=== PATIENT | male | born 1955 | race Caucasian/White ===

== ENCOUNTER 2016-11-15 18:00 | Emergency (ER) | payer OTHER ==
[2016-11-15 18:04] VITALS: BP 122/77; PULSE 69; RESP 23; O2SAT 100
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
[2016-11-15 18:15] LABS: BASOPHILS % (AUTO) 0.8 % (0-3); EOSINOPHILS % (AUTO) 3.1 % (0-5); MONOCYTES % (AUTO) 6.5 % (4-12); Mean Corpuscular Hemoglobin 27.3 pg (27.0-35.0); Mean Corpuscular Volume 85.8 fL (81-100); NEUTROPHILS % (AUTO) 63.7 % (40-74); Platelet Count 317 bil/L (150-400)
[2016-11-15] MEDS ORDERED: SENN17.27 PO (18:15)
[2016-11-15] MEDS ORDERED: ASPI-973 PO (18:15)
[2016-11-15] MEDS ORDERED: WARF10TA4 PO (18:15)
[2016-11-15] MEDS ORDERED: MELA3TAB35 PO (18:15)
[2016-11-15] MEDS ORDERED: LANS30CA PO (18:15)
[2016-11-15] MEDS ORDERED: AMN100C PO (18:15)
[2016-11-15] MEDS ORDERED: [UNRECOGNIZED DRUG - OTHER] OCULAR (18:15)
[2016-11-15] MEDS ORDERED: LISI-571 PO (18:15)
[2016-11-15] MEDS ORDERED: DOXA1TAB PO (18:15)
[2016-11-15 18:37] LABS: INR 2.85 ratio
[2016-11-15 18:49] LABS: Magnesium 1.8 mg/dL (1.6-2.6)
[2016-11-15] MEDS: fentaNYL-PF 50 mCg/mL 2 mL Inj IVPUSH PRN ×4 (18:57→20:15)
[2016-11-15 19:01] LABS: TROPONIN T < 0.010 ug/L (0.0-0.011)
--- NOTE | 2016-11-15 19:23 | DRSVH ---
PROCEDURE: X-RAY CHEST ONE VIEW, PORTABLE ([id number]) INDICATIONS: syncopal TECHNIQUE: One view of the chest was acquired. COMPARISON: None. FINDINGS: Surgical changes and devices: patient representative leads are seen over the chest. Lungs and pleura: No pleural effusions or pneumothorax. Lungs are clear. The pulmonary vasculature is normal. Mediastinum: Mediastinal contours appear normal. Heart size is normal. Bones and chest wall: No suspicious bony lesions. Overlying soft tissues appear unremarkable. IMPRESSION: No abnormality seen AP portable chest. Dictated by: Shaq Augustin M.D. on 11/15/2016 at 19:12 Approved by: Shaq Augustin M.D. on 11/15/2016 at 19:23
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
[2016-11-15] MEDS ORDERED: HYDROmorphone 0.5 mg/0.5 mL iSecure Syringe IVPUSH PRN (20:30)
[2016-11-15 21:40] VITALS: BP 154/88; PULSE 89; RESP 23; O2SAT 95
== END 2016-11-15 21:42 | disposition short-term general hospital (02) ==
LOC: SED 18:00
DX: R51 Headache (principal); R55 Syncope and collapse; R42 Dizziness and giddiness; R11.10 Vomiting, unspecified; I10 Essential (primary) hypertension; Z87.820 Personal history of traumatic brain injury; Z86.718 Personal history of other venous thrombosis and embolism; Z79.01 Long term (current) use of anticoagulants; Z79.82 Long term (current) use of aspirin
CPT/HCPCS: 36415; 70450; 71010; 80053; 83735; 84484; 85025; 85610; 93005; 96361; 96374; 96375; 96376; 99285; J1170; J2060; J3010

== ENCOUNTER 2016-11-26 12:38 | Emergency (ER) | payer OTHER ==
[~2016-11-26] VITALS: Ht 182.9 cm; Wt 77.0 kg
[~2016-11-26 12:38] MED LIST: AMN100C PO; ASPI-973 PO; DOXA1TAB PO; LANS30CA PO; LISI-571 PO; MELA3TAB35 PO; SENN17.27 PO; WARF10TA4 PO; [UNRECOGNIZED DRUG - OTHER] OCULAR
[2016-11-26 12:40] VITALS: BP 142/101; PULSE 97; RESP 15; O2SAT 98
[2016-11-26] MEDS ORDERED: Ketorolac 30 mg/mL 2 mL Inj IM ONE (13:05)
[2016-11-26 13:44] LABS: BASOPHILS % (AUTO) 0.5 % (0-3); EOSINOPHILS % (AUTO) 0.7 % (0-5); MONOCYTES % (AUTO) 4.4 % (4-12); Mean Corpuscular Hemoglobin 26.8 pg (27.0-35.0); Mean Corpuscular Volume 80.6 fL (81-100); NEUTROPHILS % (AUTO) 75.7 % (40-74); Platelet Count 357 bil/L (150-400)
[2016-11-26] MEDS ORDERED: 0.9% Sodium Chloride 1,000 ML IV ONE (13:45)
[2016-11-26] MEDS ORDERED: LORazepam 1 mg Tablet PO ONE (13:45)
[2016-11-26 13:59] LABS: INR 0.92 ratio
[2016-11-26 14:35] VITALS: BP 147/91; PULSE 82; RESP 15; O2SAT 100
[2016-11-26 14:36] LABS: APPEARANCE,URINE HAZY (CLEAR,HAZY); COLOR,URINE STRAW (YELLOW); OCCULT BLOOD,URINE NEGATIVE (NEGATIVE); PH,URINE 8.5 (5.0-8.0); UROBILINOGEN,URINE NORMAL (NORMAL)
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
[2016-11-26 17:38] VITALS: BP 135/83; PULSE 68; RESP 12; O2SAT 97
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
== END 2016-11-26 18:57 | disposition home or self-care (01) ==
LOC: SED 12:38
DX: S01.90XD Unspecified open wound of unspecified part of head, subsequent encounter (principal); G43.809 Other migraine, not intractable, without status migrainosus; H54.0 Blindness, both eyes; R11.0 Nausea; E86.0 Dehydration; R26.89 Other abnormalities of gait and mobility; G08 Intracranial and intraspinal phlebitis and thrombophlebitis; X95.9XXD Assault by unspecified firearm discharge, subsequent encounter; Y93.89 Activity, other specified; Y99.0 Civilian activity done for income or pay; Y92.69 Other specified industrial and construction area as the place of occurrence of the external cause; R47.1 Dysarthria and anarthria; I10 Essential (primary) hypertension; D64.9 Anemia, unspecified; Z87.820 Personal history of traumatic brain injury; Z87.81 Personal history of (healed) traumatic fracture; Z79.82 Long term (current) use of aspirin
CPT/HCPCS: 36415; 70450; 80053; 81000; 85025; 85610; 96360; 96372; 99285; J1885; J7030

== ENCOUNTER 2017-01-03 10:46 | Emergency (ER) | payer OTHER ==
[~2017-01-03] VITALS: Ht 182.9 cm; Wt 81.8 kg
[2017-01-03 10:55] VITALS: BP 101/60; PULSE 78; RESP 20; O2SAT 100
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
[2017-01-03] MEDS ORDERED: 0.9% Sodium Chloride 1,000 ML IV ONE (10:57)
--- NOTE | 2017-01-03 11:34 | DRSVH ---
PROCEDURE: X-RAY CHEST ONE VIEW, PORTABLE ([id number]) INDICATIONS: syncope TECHNIQUE: One view of the chest was acquired. COMPARISON: [facility], CR, XR CHEST 1VW (PORTABLE), 11/15/2016, 18:27. FINDINGS: Surgical changes and devices: None. Lungs and pleura: No pleural effusions or pneumothorax. Lungs are clear. Mediastinum: Mediastinal contours appear normal. Heart size is normal. Bones and chest wall: No suspicious bony lesions. Overlying soft tissues appear unremarkable. IMPRESSION: No acute disease Dictated by: Kirit Bro M.D. on 01/03/2017 at 11:32 Approved by: Kirit Bro M.D. on 01/03/2017 at 11:32
[2017-01-03 11:50] LABS: BASOPHILS % (AUTO) 0.6 % (0-3); EOSINOPHILS % (AUTO) 1.6 % (0-5); MONOCYTES % (AUTO) 7.3 % (4-12); Mean Corpuscular Hemoglobin 24.9 pg (27.0-35.0); Mean Corpuscular Volume 78.4 fL (81-100); NEUTROPHILS % (AUTO) 70.7 % (40-74); Platelet Count 227 bil/L (150-400)
[2017-01-03 13:01] LABS: Magnesium 1.6 mg/dL (1.6-2.6)
[2017-01-03 13:09] VITALS: BP 106/60; PULSE 67; RESP 20; O2SAT 95
== END 2017-01-03 13:57 | disposition home or self-care (01) ==
LOC: SED 11:09
DX: R55 Syncope and collapse (principal); I10 Essential (primary) hypertension; Z79.82 Long term (current) use of aspirin; Z79.01 Long term (current) use of anticoagulants
CPT/HCPCS: 36415; 71010; 80053; 82948; 83735; 85025; 93005; 96360; 99285; J7030

== ENCOUNTER 2017-01-17 11:34 | Emergency (ER) | payer OTHER ==
[~2017-01-17] VITALS: Ht 177.8 cm; Wt 90.9 kg
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
[2017-01-17 11:37] VITALS: BP 95/64; PULSE 68; RESP 28; O2SAT 98
[2017-01-17] MEDS ORDERED: 0.9% Sodium Chloride 1,000 ML IV ONE (11:50)
[2017-01-17 11:53] LABS: BASOPHILS % (AUTO) 0.5 % (0-3); EOSINOPHILS % (AUTO) 1.8 % (0-5); Mean Corpuscular Hemoglobin 25.3 pg (27.0-35.0); Mean Corpuscular Volume 77.7 fL (81-100); NEUTROPHILS % (AUTO) 64.5 % (40-74); Platelet Count 290 bil/L (150-400)
[2017-01-17 12:06] VITALS: BP 95/71; PULSE 70; RESP 13; O2SAT 100
[2017-01-17 12:13] LABS: INR 0.9 ratio
[2017-01-17 12:39] LABS: TROPONIN T 0.01 ug/L (0.0-0.011)
[2017-01-17 12:50] LABS: Magnesium 1.7 mg/dL (1.6-2.6)
[2017-01-17 13:17] VITALS: BP 112/78; PULSE 73
[2017-01-17 13:53] LABS: APPEARANCE,URINE HAZY (CLEAR,HAZY); COLOR,URINE STRAW (YELLOW); OCCULT BLOOD,URINE NEGATIVE (NEGATIVE); UROBILINOGEN,URINE NORMAL (NORMAL)
[2017-01-17 14:04] VITALS: BP 115/82; PULSE 71; O2SAT 98
== END 2017-01-17 14:05 | disposition home or self-care (01) ==
LOC: SED 11:34 → EDBD 11:34 → SED 14:05
DX: R55 Syncope and collapse (principal); I10 Essential (primary) hypertension; Z79.82 Long term (current) use of aspirin; Z79.01 Long term (current) use of anticoagulants
CPT/HCPCS: 36415; 80053; 81000; 83735; 84484; 85025; 85610; 96360; 99285; J7030